=== PATIENT | male | born 1985 | race Caucasian/White ===

== ENCOUNTER 2019-08-15 22:04 | Emergency (ER) | payer MEDICAID ==
[~2019-08-15] VITALS: Ht 175.3 cm; Wt 104.1 kg
[2019-08-15] MEDS ORDERED: ketorolac tromethamine 15mg/ml inj. IM ONE (23:05)
[2019-08-15] MEDS ORDERED: ondansetron 4mg rapidly disintigrating tab PO ONE (23:05)
[2019-08-15] MEDS ORDERED: ONDA4TAB6 PO (23:56)
[2019-08-15 23:59] VITALS: BP 143/93
== END 2019-08-16 00:01 | disposition home or self-care (01) ==
LOC: ER 22:05
DX: L72.11 Pilar cyst (principal); R51 Headache; Z88.8 Allergy status to other drugs, medicaments and biological substances; Z79.899 Other long term (current) drug therapy
CPT/HCPCS: 96372; 99283; J1885

== ENCOUNTER 2025-03-30 15:24 | Outpatient (CLI) | payer MEDICAID ==
[~2025-03-30 15:24] MED LIST: ONDA4TAB6 PO
--- NOTE | 2025-03-30 18:42 | RADIOLOGY REPORT ---
EXAM: MR MRI LOWER EXTREMITY RIGHT HISTORY: PAIN IN RIGHT KNEE COMPARISON: None TECHNIQUE: Multiplanar, multisequence imaging of the right knee was performed without contrast FINDINGS: MEDIAL COMPARTMENT: Significant large bucket-handle type tear of the medial meniscus with significant flipped fragment into the intercondylar notch. Tear extension into the anterior and posterior roots. Significant volume loss of the central body of the medial meniscus. No medial meniscal extrusion. LATERAL COMPARTMENT: Intact lateral meniscus. No focal chondrosis or subchondral edema. PATELLOFEMORAL COMPARTMENT: Near full-thickness to full-thickness cartilage fissure of the mesial aspect of the lateral patellar facet. No focal chondrosis or subchondral edema. CRUCIATE LIGAMENTS: Intact anterior and posterior cruciate ligaments. MEDIAL SUPPORTING STRUCTURES: Trace amount of possible marginal edema of the inferior aspect of the superficial medial collateral ligament correlate for low- grade sprain. LATERAL SUPPORTING STRUCTURES: Intact iliotibial band. Intact lateral capsular ligament. Intact fibular collateral ligament. Intact popliteus. Intact biceps femoris tendons. EXTENSOR MECHANISM: Intact JOINT SPACE/FLUID: Small to medium knee joint effusion. BONES: No acute fracture, osseous contusion, or aggressive focal osseous lesion. Bipartite patella. MUSCLES: Normal in signal intensity and morphology NEUROVASCULAR: Unremarkable OTHER: None IMPRESSION: 1. Significant large bucket-handle type tear of the medial meniscus with significant flipped fragment into the intercondylar notch. 2. Tear extension into the anterior and posterior roots. 3. Significant volume loss of the central body of the medial meniscus. 4. Trace amount of possible marginal edema of the inferior aspect of the superficial medial collateral ligament correlate for low-grade sprain. 5. Near full-thickness to full-thickness cartilage fissure of the mesial aspect of the lateral patellar facet. 6. Small to medium knee joint effusion. 7. Bipartite patella.
== END 2025-03-30 23:59 | disposition home or self-care (01) ==
LOC: MRI02 15:24
PROVIDERS: ATTEND Nurse Practitioner
DX: S83.211A Bucket-handle tear of medial meniscus, current injury, right knee, initial encounter (principal); M25.461 Effusion, right knee; M25.561 Pain in right knee; X58.XXXA Exposure to other specified factors, initial encounter; Y93.89 Activity, other specified; Y92.89 Other specified places as the place of occurrence of the external cause; Y99.8 Other external cause status
CPT/HCPCS: 73721